=== PATIENT | male | born 1960 | race Caucasian/White ===

== ENCOUNTER 2016-10-22 14:24 | Emergency (ER) | payer OTHER ==
[2016-10-22 14:44] VITALS: BP 124/68; PULSE 55; RESP 14; TEMP 98.8; O2SAT 95
--- NOTE | 2016-10-22 15:03 | UCPHY ---
H & P Time Seen by Provider: 10/22/16 14:59 Patient Type: Established HPI/ROS: HPI: 56-year-old gentleman presents to urgent care with chief concern worsening cough. Reports nasal congestion and sore throat for several days followed by onset of cough this morning. Denies fever, chills, myalgias, shortness of breath, chest pain, abdominal pain, nausea, vomiting, diarrhea. No aggravating or alleviating factors. History of exercise-induced asthma, and pneumonia as a child. Did not receive a flu shot this year. Dr. Prince patient. ROS:10 point review of systems is negative other than as stated in HPI Smoking Status: Never smoked Physical Exam: Vital signs stable, reviewed by me General: Awake, alert, calm, cooperative. No acute distress. Head: Atraumatic. EENT: Conjuctiva mildly injected. TMs intact, without redness or bulging. Nasal mucosa is erythematous with moderate clear discharge. Pharynx mildly erythematous. Uvula midline. No tonsillar abscess or exudates. No frontal or maxillary tenderness to percussion. Respiratory: Breathing unlabored. Lungs clear to auscultation bilaterally. No accessory muscle use. CV: Heart rate regular. S1-S2 present. No murmur. GI: Abdomen soft, nontender. Bowel sounds positive x4 quadrants. : Deferred Skin: Warm, dry, intact. No rashes present. Capillary refill brisk. Musculoskeletal: Full ROM all extremities. Neuro: Alert oriented x3. Strength equal in all 4 extremities. Constitutional: Initial Vital Signs Temperature (C) 37.1 C 10/22/16 14:32 Heart Rate 55 L 10/22/16 14:32 Respiratory Rate 14 10/22/16 14:32 Blood Pressure 124/68 H 10/22/16 14:32 O2 Sat (%) 95 10/22/16 14:32 O2 Delivery Mode Room Air Allergies/Adverse Reactions: No Known Allergies Allergy (Verified 10/22/16 14:44) Home Medications: Medication Instructions Recorded NO HOME MEDS 09/30/13 Albuterol [Proventil Inhaler HFA 1 - 2 puffs IH Q4 #1 mdi 10/22/16 (*)] Fluticasone Hfa 220 Mcg [Flovent 1 puffs IH BID #1 mdi 10/22/16 220 MCG Hfa MDI (*)] Medical Decision Making ED Course/Re-evaluation: Nontoxic 56-year-old gentleman presents to urgent care with primary concern cough. He is afebrile. Lungs are clear to auscultation bilaterally. He has a history of reactive airway. I will prescribe an albuterol inhaler, Flovent Diskus. I have encouraged him to follow up and return for recheck should he develop fever, shortness of breath, chest pain. Differential Diagnosis: Differential includes but is not limited to viral URI including bronchitis, influenza, pneumonia, reactive airway disease Departure - Departure Disposition: Home, Routine, Self-Care Clinical Impression: Upper respiratory infection Qualifiers: URI type: unspecified viral URI Qualifier Code: (J06.9) Acute upper respiratory infection, unspecified Condition: Good Instructions: Upper Respiratory Infection (ED) Additional Instructions: Plan: Use your albuterol inhaler 2 puffs every 4-6 hours for shortness of breath, wheezing. Flovent twice daily as prescribed You may use Mucinex/guaifenesin over the counter to help expectorate mucus with your cough. Follow up with primary care for recheck this week If he developed fever, shortness of breath, chest pain return promptly for recheck or go to see your primary care provider's Referrals: [place],. [Primary Care Provider] - As per Instructions Can Prince MD [Medical Doctor] - As per Instructions Prescriptions: Fluticasone Hfa 220 Mcg [Flovent 220 MCG Hfa MDI (*)] 1 puffs IH BID #1 mdi Albuterol [Proventil Inhaler HFA (*)] 1 - 2 puffs IH Q4 #1 mdi - PQRS PQRS Measurement: Not applicable
== END 2016-10-22 15:10 | disposition home or self-care (01) ==
LOC: CED 14:24
DX: J06.9 Acute upper respiratory infection, unspecified (principal)
CPT/HCPCS: 99214-PO; G0463-PO

== ENCOUNTER 2017-02-12 18:59 | Emergency (ER) | payer OTHER ==
[2017-02-12 19:31] VITALS: RESP 18
--- NOTE | 2017-02-12 20:12 | EDPHY ---
H & P Time Seen by Provider: 02/12/17 19:49 HPI/ROS: CHIEF COMPLAINT: Left 4th digit injury HISTORY OF PRESENT ILLNESS: 56-year-old male with up-to-date tetanus was on a hike earlier today when he fell and impacted his left 4th digit. He believes it was dislocated at the PIP joint noting that it was deformed and he reduced it himself however he notes that there is a puncture wound on the dorsal aspect at the PIP joint. PHYSICAL EXAM (Prior to examination, patient consented to physical exam, hands were washed and my usual and customary physical exam procedures followed) 1) GENERAL: Well-developed, well-nourished, alert and oriented. Appears to be in no acute distress. 2) HEAD: Normocephalic 3) HEENT: sclera anicteric 4) LUNGS: Breathing comfortably. 5) SKIN: there is a 2 mm puncture wound on the dorsal aspect of the left 4th digit at the PIP joint 6) MUSCULOSKELETAL: left 4th digit has no flexor or extensor deficits at the MCP PIP D IP 7) NEUROLOGIC: Full sensation two-point discrimination intact distally Smoking Status: Never smoked Constitutional: Initial Vital Signs Temperature (C) 36.6 C 02/12/17 19:29 Heart Rate 51 L 02/12/17 19:29 Respiratory Rate 18 02/12/17 19:29 O2 Sat (%) 100 02/12/17 19:29 O2 Delivery Mode Room Air Allergies/Adverse Reactions: No Known Allergies Allergy (Verified 02/12/17 19:31) Home Medications: Medication Instructions Recorded Albuterol [Proventil Inhaler HFA 1 - 2 puffs IH Q4H 02/12/17 (*)] Cephalexin [Keflex] 500 mg PO QID 7 Days 02/12/17 MDM/Departure - MDM Imaging Results: Imaging Impressions Finger X-Ray 02/12/17 19:50 Impression: Nondisplaced fracture of the head of the proximal phalanx of the fourth finger. Images reviewed by myself Imaging: I viewed and interpreted images myself Procedures: Wound irrigation by ER staff Medications Given: Discontinued Medications Cephalexin (Keflex 500 Mg Prepack#4) 1 btl TAKEHOME EDNOW ONE PRN Reason: Protocol Stop: 02/12/17 20:58 Last Admin: 02/12/17 21:08 Dose: 1 btl Cephalexin HCl (Keflex) 500 mg PO EDNOW ONE PRN Reason: Protocol Stop: 02/12/17 20:34 Last Admin: 02/12/17 20:50 Dose: 500 mg ED Course/Re-evaluation: This patient had a likely dislocation of the 4th digit at the PIP joint on his left hand which he self reduced. There is a puncture wound at same location with small avulsion fracture. He has been informed that this is more than likely an open fracture and recommend treatment as an open fracture. The wound has been copiously irrigated. Wound will be allowed to heal via secondary intention. The wound has been splinted and he started on oral antibiotics. Phone consultation with on-call hand surgery PA with Dr. Oswaldo Tipton at 9:39 pm who concurs with the assessment and plan. - Depart Disposition: Home, Routine, Self-Care Clinical Impression: Open fracture of finger of left hand Qualifiers: Encounter type: initial encounter Qualified Code(s): S62.609B - Fracture of unspecified phalanx of unspecified finger, initial encounter for open fracture Condition: Good Instructions: Cephalexin (By mouth), Finger Fracture (ED) Additional Instructions: Return to the ER if you develop redness, swelling, discharge, warmth to the wound, red streaks going up your arm, or any other symptoms that concern you. Prescriptions: Cephalexin [Keflex] 500 mg PO QID 7 Days Referrals: Oswaldo Tipton MD [Medical Doctor] - 2-3 days, call for appt. (Dr. Oswaldo Tipton is a hand surgeon)
[2017-02-12] MEDS ORDERED: CEPHALEXIN 500 MG CAP PO ONE (20:33)
[2017-02-12] MEDS ORDERED: CEPHALEXIN 500MG PREPACK#4 BTL TAKEHOME ONE (20:57)
[2017-02-12 21:07] VITALS: BP 126/83; PULSE 48; TEMP 97.5; O2SAT 98
== END 2017-02-12 21:05 | disposition home or self-care (01) ==
DX: S62.645A Nondisplaced fracture of proximal phalanx of left ring finger, initial encounter for closed fracture (principal); W19.XXXA Unspecified fall, initial encounter; Y99.8 Other external cause status; Y93.01 Activity, walking, marching and hiking
CPT/HCPCS: L3925

== ENCOUNTER → 2018-01-25 | Outpatient (CLI) | payer OTHER | LOC: FIMAGING 09:52 | PROVIDERS: ATTEND Internal Medicine | DX: R59.0 Localized enlarged lymph nodes (principal) ==